=== PATIENT | male | born 1990 | race African-American/Black ===

== ENCOUNTER 2025-03-15 12:21 | Emergency (ER) | payer OTHER ==
[~2025-03-15] VITALS: Ht 180.3 cm; Wt 73.9 kg
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
[2025-03-15] MEDS ORDERED: CYCL-309 PO (13:30)
[2025-03-15] MEDS ORDERED: IBUP-2077 PO (13:30)
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
[2025-03-15 13:58] VITALS: BP 118/56; PULSE 58; RESP 17; TEMP 98.3; O2SAT 97
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
--- NOTE | 2025-03-15 13:59 | NUR ---
PT AAOX4, STABLE NO DISTERSS, STATES MEDICATION HELPED PAIN, PT HAS NO IV AT THIS TIME, PT GIVEN INSTRUCTION FOR HOME WITH RX FOR PHARMACY WILL START TODAY. PT DROVE HIMSELF HOME.
== END 2025-03-15 14:00 | disposition home or self-care (01) ==
LOC: EDH 12:21
DX: S39.012A Strain of muscle, fascia and tendon of lower back, initial encounter (principal); S80.02XA Contusion of left knee, initial encounter; V49.50XA Passenger injured in collision with unspecified motor vehicles in traffic accident, initial encounter; Y93.89 Activity, other specified; Y92.488 Other paved roadways as the place of occurrence of the external cause; Y99.8 Other external cause status
CPT/HCPCS: 72100; 73562; 99284